=== PATIENT | female | born 1955 | race Caucasian/White ===

== ENCOUNTER → 2022-12-18 12:18 | Outpatient (CLI) | payer OTHER, SELFPAY ==
--- NOTE | ~2022-12-18 | XR_ITS ---
Supine and upright views of the abdomen Clinical history: Ureteral stone Findings: Bowel gas pattern is nonspecific. No evidence for obstruction or free air. Calcifications i n the left pelvis could reflect distal left ureteral stones, measuring up to 7 mm. Osseous structures are intact. Impression: Possible distal left ureteral stones measuring up to 7 mm. Reviewed, dictated and finalized at [facility]. Impression: Possible distal left ureteral stones measuring up to 7 mm.
== END ==
PROVIDERS: PCP Urology; Visit Provider Urology
DX: N20.1 Calculus of ureter (principal)
CPT/HCPCS: 74018